=== PATIENT | male | born 1990 | race Caucasian/White ===

== ENCOUNTER 2020-07-21 00:17 | Emergency (ER) | payer OTHER ==
[2020-07-21] MEDS ORDERED: DOXYCYCLINE HY100 MG PO (02:50)
[2020-07-21] MEDS ORDERED: NORCO 5-325 TA1 EACH PO (02:50)
[2020-07-21] MEDS ORDERED: CIPRO500 MG PO (02:50)
== END 2020-07-21 03:07 | disposition home or self-care (01) ==
LOC: FER 00:17
DX: N45.1 Epididymitis (principal)
CPT/HCPCS: 76870; J0696